=== PATIENT | female | born 1975 | race Caucasian/White ===

== ENCOUNTER 2017-04-30 22:17 | Emergency (ER) | payer OTHER ==
[~2017-04-30] VITALS: Wt 104.5 kg
[2017-05-01] MEDS ORDERED: ONDANSETRON (ODT) 4 MG TAB ODT STA (00:44)
--- NOTE | 2017-05-01 01:11 | ERD ---
ER Documentation Chief Complaint Date/Time DATE: 05/01/17 TIME: 01:10 Chief Complaint Epigastric pain and vomiting x3 days HPI 41-year-old female presents to emergency department for complaint of epigastric pain vomiting for 3 days. Patient described the pain as sharp pain, 4/10 scale, is accompanied with vomiting and some burping. Patient denies any diarrhea or constipation. Patient denies any fever or chills. Patient denies any palpitations or irregular heartbeat. Patient denies any dyspnea on exertion or dyspnea on lying down. ROS All systems reviewed and are negative except as per history of present illness. Medications Home Meds Active Scripts Omeprazole* (Omeprazole*) 20 Mg Capsule.dr, 20 MG PO DAILY, #30 Prov:BLANQUITA REILLY NP 05/01/17 Tramadol HCl (Tramadol HCl) 50 Mg Tablet, 50 MG PO Q6 Y for SEVERE PAIN LEVEL 7- 10, #20 TAB Prov:BLANQUITA REILLY NP 05/01/17 Ondansetron (Ondansetron Odt) 4 Mg Tab.rapdis, 4 MG PO Q8 Y for NAUSEA AND/OR VOMITING, #30 TAB Prov:BLANQUITA REILLY NP 05/01/17 Magaldrate/Simethicone* (Mylanta*) 355 Ml Susp, 30 ML PO QID Y for GASTROINTESTINAL UPSET, #1 BOTTLE Prov:BLANQUITA REILLY NP 05/01/17 Allergies Allergies: Coded Allergies: No Known Allergy (Unverified , 11/01/12) PMhx/Soc Medical and Surgical Hx: pt denies Medical Hx, pt denies Surgical Hx History of Surgery: Yes (R FOOT 1994, APPENDECTOMY 1994) Anesthesia Reaction: No Hx Neurological Disorder: No Hx Respiratory Disorders: No Hx Cardiac Disorders: No Hx Psychiatric Problems: No Hx Miscellaneous Medical Probl: No Hx Alcohol Use: No Hx Substance Use: No Hx Tobacco Use: No Smoking Status: Never smoker FmHx Family History: No coronary disease, No diabetes, No other Physical Exam Vitals Vital Signs Date Time Temp Pulse Resp B/P Pulse Ox O2 Delivery O2 Flow Rate FiO2 04/30/17 22:51 98.3 88 20 164/84 98 Physical Exam GENERAL: The patient is well developed and appropriate for usual state of health, in no apparent distress. CHEST: Clear to auscultation bilaterally. There are no rales, wheezes or rhonchi. HEART: Regular rate and rhythm. No murmurs, clicks, rubs or gallops. No S3 or S4. ABDOMEN: Soft, nontender and nondistended. Good bowel sounds. No rebound or guarding. No gross peritonitis. No gross organomegaly or masses. No Aguiar sign or McBurney point tenderness. BACK: No midline or flank tenderness. EXTREMITIES: Equal pulses bilaterally. There is no peripheral clubbing, cyanosis or edema. No focal swelling or erythema. Full range of motion. Grossly neurovascularly intact. NEURO: Alert and oriented. Cranial nerves 2-12 intact. Motor strength in all 4 extremities with 5/5 strength. Sensation grossly intact. Normal speech and gait. SKIN: There is no apparent rash or petechia. The skin is warm and dry. HEMATOLOGIC AND LYMPHATIC: There is no evidence of excessive bruising or lymphedema. No gross cervical, axillary, or inguinal lymphadenopathy. Result Diagram: 05/01/175 05/01/17 0055 Results 24 hrs Laboratory Tests Test 05/01/17 00:55 White Blood Count 12.110^3/ul Red Blood Count 4.3210^6/ul Hemoglobin 13.7g/dl Hematocrit 39.0% Mean Corpuscular Volume 90.3fl Mean Corpuscular Hemoglobin 31.7pg Mean Corpuscular Hemoglobin Concent 35.1g/dl Red Cell Distribution Width 12.0% Platelet Count 41632^3/UL Mean Platelet Volume 10.6fl Neutrophils % 76.5% Lymphocytes % 15.8% Monocytes % 6.6% Eosinophils % 0.6% Basophils % 0.2% Nucleated Red Blood Cells % 0.0/100WBC Neutrophils # 9.310^3/ul Lymphocytes # 1.910^3/ul Monocytes # 0.810^3/ul Eosinophils # 0.110^3/ul Basophils # 0.010^3/ul Nucleated Red Blood Cells # 0.010^3/ul Urine Color YELLOW Urine Clarity CLEAR Urine pH 5.5 Urine Specific [place] 1.025 Urine Ketones NEGATIVE Urine Nitrite NEGATIVE Urine Bilirubin 1+ Urine Ictotest NEGATIVE Urine Urobilinogen 1.0 E.U./dL Urine Leukocyte Esterase TRACE Urine Microscopic RBC 0-2/HPF Urine Microscopic WBC 5-10/HPF Urine Squamous Epithelial Cells FEW Urine Bacteria OCCASIONAL Urine Hemoglobin NEGATIVE Urine Glucose NEGATIVE% Urine Total Protein TRACE Sodium Level 141mmol/L Potassium Level 4.1mmol/L Chloride Level 108mmol/L Carbon Dioxide Level 20mmol/L Anion Gap 17 Blood Urea Nitrogen 13mg/dl Creatinine 0.66mg/dl Glucose Level 120mg/dl Calcium Level 9.4mg/dl Total Bilirubin 1.0mg/dl Direct Bilirubin 0.00mg/dl Indirect Bilirubin 1.0mg/dl Aspartate Amino Transf (AST/SGOT) 261IU/L Alanine Aminotransferase (ALT/SGPT) 165IU/L Alkaline Phosphatase 74IU/L Troponin I < 0.012ng/ml Total Protein 8.2g/dl Albumin 4.8g/dl Globulin 3.40g/dl Albumin/Globulin Ratio 1.41 Lipase 72U/L Current Medications Medications (Trade) Dose Ordered Sig/Jada Route PRN Reason Start Time Stop Time Status Last Admin Dose Admin Ondansetron HCl (Zofran Odt) 4 mg ONCE STAT ODT 05/01/17 00:44 05/01/17 00:46 DC 05/01/17 00:51 Miscellaneous Medication (Gi Cocktail (2)) 40 ml ONCE ONCE PO 05/01/17 03:00 05/01/17 03:01 DC 05/01/17 03:00 Patient was given Zofran here in the emergency department. After treatment, patient was able to tolerate po fluids here in the emergency department without any vomiting. There is no signs and symptoms of dehydration.gi cocktail was given here in emergency department, verbalizing much better afterwards PROCEDURE: US Abdomen (right upper quadrant). CLINICAL INDICATION: Pain. TECHNIQUE: Multiple real-time longitudinal and transverse images of the right upper quadrant of the abdomen were acquired utilizing a curved array transducer. Images were reviewed on a high-resolution PACS workstation. COMPARISON: None FINDINGS: The liver is normal in size and echogencity. There is no focal intrahepatic mass.. The gallbladder has been removed. No intra or extrahepatic biliary dilatation is seen. The common bile duct measures 4.5 mm in maximal dimension. The visualized portions of the pancreas are unremarkable with obscuration of the tail of the pancreas. No free fluid is identified. The right kidney measures 11 cm in length. There is normal echogenicity within the right kidney. There is no perinephric fluid collection. No hydronephrosis , mass, or calculus is seen. IMPRESSION: 1. Status post cholecystectomy. 2. No evidence for biliary obstruction. 3. Otherwise negative examination. RPTAT: [facility]K .Shelton Beyer MD, Date Time Electronically viewed and signed by .Shelton Beyer MD, MD on 05/01/2017 02:30 .K/ CC: BLANQUITA REILLY [employer] DEVELOPER Procedures/MDM Medical Decision Making: Patient's symptoms are most likely is consistent with gastritis, acid reflux disease. There is low suspicion for abdominal emergencies at this time. Patients abdominal exam is normal at this time. Patients radiology exam does not show any abdominal emergencies at this time. There is low suspicion for appendicitis, cholecystitis, abdominal aortic aneurysms or peritonitis at this time. There is low suspicion for sepsis. Patient appears well and is hemodynamically stable. Low suspicion for cardiopulmonary emergencies at this time, EKG is normal, negative troponin. No gallbladder bladder stones, no LDL elevation, lipase normal. No symptoms of pancreatitis. Disposition: Home. Condition: Stable Prescription omeprazole, Mylanta, Zofran, tramadol Instructions: Patient is advised to take medications as prescribed. Patient is advised to rest, increase fluid intake and do brat diet for next 1-2 days and progress as tolerated. Patient is advised that if symptoms are worse, severe abdominal pain, uncontrolled vomiting, high fever, severe flank pain, worst signs and symptoms, to return to the emergency department immediately. Otherwise, patient can follow up with primary care doctor in 5-7 days. Departure Diagnosis: Primary Impression: Abdominal pain Abdominal location: epigastric Qualified Code: R10.13 - Epigastric pain Additional Impression: Vomiting Vomiting type: unspecified Vomiting Intractability: unspecified Nausea presence: unspecified Qualified Code: R11.10 - Vomiting, intractability of vomiting not specified, presence of nausea not specified, unspecified vomiting type Condition: Stable Patient Instructions: Epigastric Pain (Uncertain Cause), Vomiting (6Y-Adult) Additional Instructions: Patient is advised to take medications as prescribed. Patient is advised to rest , increase fluid intake and do brat diet for next 1-2 days and progress as tolerated. Patient is advised that if symptoms are worse, severe abdominal pain , uncontrolled vomiting, high fever, severe flank pain, worst signs and symptoms , to return to the emergency department immediately. Otherwise, patient can follow up with primary care doctor in 5-7 days. BLANQUITA REILLY NP May 01, 2017 01:11
[2017-05-01 01:29] LABS: ADD SCAN DIFF NO
[2017-05-01 01:31] LABS: BASOPHILS % 0.2 % (0.0-2.0); EOSINOPHILS # 0.1 10^3/ul (0.0-0.5); EOSINOPHILS % 0.6 % (0.0-7.0); HEMOGLOBIN 13.7 g/dl (12.0-16.0); LYMPHOCYTES # 1.9 10^3/ul (0.8-2.9); LYMPHOCYTES % 15.8 % (15.0-51.0); MEAN CORPUSCULAR HEMOGLOBIN 31.7 pg (29.0-33.0); MEAN CORPUSCULAR HGB CONC 35.1 g/dl (32.0-37.0); MEAN CORPUSCULAR VOLUME 90.3 fl (82.0-101.0); MEAN PLATELET VOLUME 10.6 fl (7.4-10.4); MONOCYTE # 0.8 10^3/ul (0.3-0.9); MONOCYTES % 6.6 % (0.0-11.0); NEUTROPHIL # 9.3 10^3/ul (1.6-7.5); NEUTROPHILS % 76.5 % (39.0-77.0); PLATELET COUNT 273 10^3/UL (140-415); RED BLOOD COUNT 4.32 10^6/ul (4.20-5.40); WHITE BLOOD COUNT 12.1 10^3/ul (4.8-10.8)
[2017-05-01 01:36] LABS: ADD UMIC YES; UR BILIRUBIN (Dip) 1+ (NEGATIVE); UR BLOOD (Dip) NEGATIVE (NEGATIVE); UR CLARITY CLEAR (CLEAR); UR COLOR YELLOW (YELLOW); UR GLUCOSE (Dip) NEGATIVE (NEGATIVE); UR KETONES (Dip) NEGATIVE (NEGATIVE); UR LEUKOCYTE ESTERASE (Dip) TRACE (NEGATIVE); UR NITRITE (Dip) NEGATIVE (NEGATIVE); UR TOTAL PROTEIN (Dip) TRACE (NEGATIVE); UR UROBILINOGEN (Dip) 1.0 E.U./dL (0.1-1.0)
[2017-05-01 01:52] LABS: ICTOTEST NEGATIVE (NEGATIVE)
[2017-05-01 01:53] LABS: UR BACTERIA OCCASIONAL; UR SQUAMOUS EPITHELIAL CELL FEW; URINE RBCS 0-2 /HPF (0)
[2017-05-01 01:59] LABS: ALANINE AMINOTRANSFERASE 165 IU/L (13-69); ALBUMIN 4.8 g/dl (3.3-4.9); ALBUMIN/GLOBULIN RATIO 1.41; ALKALINE PHOSPHATASE 74 IU/L (42-121); ANION GAP 17 (8-16); ASPARTATE AMINO TRANSFERASE 261 IU/L (15-46); BLOOD UREA NITROGEN 13 mg/dl (7-20); CALCIUM 9.4 mg/dl (8.4-10.2); CARBON DIOXIDE 20 mmol/L (21-31); CHLORIDE 108 mmol/L (97-110); CREATININE 0.66 mg/dl (0.44-1.00); GLUCOSE 120 mg/dl (70-220); POTASSIUM 4.1 mmol/L (3.5-5.1); SODIUM 141 mmol/L (135-144); TOTAL PROTEIN 8.2 g/dl (6.1-8.1)
[2017-05-01 02:16] LABS: TROPONIN-I < 0.012 ng/ml (0.00-0.12)
--- NOTE | 2017-05-01 02:30 | RADRPT ---
PROCEDURE: US Abdomen (right upper quadrant). CLINICAL INDICATION: Pain. TECHNIQUE: Multiple real-time longitudinal and transverse images of the right upper quadrant of th e abdomen were acquired utilizing a curved array transducer. Images were reviewed on a high-resoluti on PACS workstation. COMPARISON: None FINDINGS: The liver is normal in size and echogencity. There is no focal intrahepatic mass.. The gallbladder has been removed. No intra or extrahepatic biliary dilatation is seen. The common bile duct measur es 4.5 mm in maximal dimension. The visualized portions of the pancreas are unremarkable with obscu ration of the tail of the pancreas. No free fluid is identified. The right kidney measures 11 cm in length. There is normal echogenicity within the right kidney. T here is no perinephric fluid collection. No hydronephrosis, mass, or calculus is seen. IMPRESSION: 1. Status post cholecystectomy. 2. No evidence for biliary obstruction. 3. Otherwise negative examination. RPTAT: [facility]K .Shelton Beyer MD, Date Time Electronically viewed and signed by .Shelton Beyer MD, MD on 05/01/2017 02:30 .K/
[2017-05-01] MEDS ORDERED: MAG-19 PO (02:53)
[2017-05-01] MEDS ORDERED: TRAM50TA2 PO (02:53)
[2017-05-01] MEDS ORDERED: ONDA4TAB14 PO (02:53)
[2017-05-01] MEDS ORDERED: OMEP20CA16 PO (02:53)
[2017-05-01] MEDS ORDERED: LIDOCAINE/MYLANTA 40 ML BTL PO ONE (03:00)
[2017-05-01 03:10] VITALS: BP 139/76; PULSE 70; RESP 16; TEMP 98.2
== END 2017-05-01 03:19 | disposition home or self-care (01) ==
LOC: FTE 22:17
DX: R10.13 Epigastric pain (principal); R11.10 Vomiting, unspecified; R10.2 Pelvic and perineal pain
CPT/HCPCS: 36415; 76705; 80053; 81001; 83690; 84484; 85025; 93005; Z7502; Z7610